=== PATIENT | male | born 1935 | race Caucasian/White ===

== ENCOUNTER 2017-08-29 18:02 | Emergency (ER) | payer MEDICARE, OTHER ==
[~2017-08-29] VITALS: Ht 180.3 cm; Wt 137.5 kg
[~2017-08-29 18:02] MED LIST: ASPI-1071 PO; CITA20TA16 PO; LISI30TA4 PO; LORA1TAB PO
[2017-08-29 20:21] VITALS: BP 170/104
[2017-08-29 20:56] LABS: CLARITY,URINE CLEAR (Clear); COLOR,URINE YELLOW (Yellow); GLUCOSE, URINE NEGATIVE (Neg); KETONES,URINE NEGATIVE (Neg); LEUKOCYTE ESTERASE ,URINE NEGATIVE (Neg); NITRITES, URINE NEGATIVE (Neg); OCCULT BLOOD,URINE NEGATIVE (Neg); PROTEIN,URINE NEGATIVE (Neg); UA COLLECTION TYPE CLN CATCH MIDSTREAM; UROBILINOGEN,URINE 0.2 E.U/dL (0.2-1.0)
[2017-08-29 21:28] LABS: BASOPHILS # (AUTO) 0.1 X10'3 (0-0.2); BASOPHILS % (AUTO) 0.8 % (0-1); EOSINOPHILS # (AUTO) 0.2 X10'3 (0-0.9); EOSINOPHILS % (AUTO) 2.7 % (0-6); HEMATOCRIT 47.9 % (42.0-52.0); LYMPHOCYTES % (AUTO) 27.1 % (21-51); MEAN CORPUSCULAR HEMOGLOBIN 28.2 PG (27.0-31.0); MEAN CORPUSCULAR HGB CONC 33.4 % (33.0-36.5); MEAN CORPUSCULAR VOLUME 84.4 FL (78-98); MEAN PLATELET VOLUME 9.2 FL (7.4-10.4); MONOCYTES # (AUTO) 0.7 X10'3 (0-0.9); MONOCYTES % (AUTO) 9.5 % (2-12); NEUTROPHILS # (AUTO) 4.4 X10'3 (1.8-7.7); NEUTROPHILS % (AUTO) 59.9 % (42-75); PLATELET COUNT 238 X10'3 (140-440); RED BLOOD COUNT 5.68 X10'6 (4.70-6.10); RED CELL DISTRIBUTION WIDTH 13.9 % (11.5-14.5); WHITE BLOOD COUNT 7.4 X10'3 (4.5-11.0)
[2017-08-29 21:45] LABS: ALANINE AMINOTRANSFERASE 19 U/L (12-78); ALBUMIN 4.4 G/DL (3.4-5.0); ALBUMIN/GLOBULIN RATIO 1.3 (1.1-1.5); ALKALINE PHOSPHATASE 109 IU/L (46-116); ANION GAP 11 (8-16); ASPARTATE AMINO TRANSFERASE 20 U/L (10-37); BILIRUBIN,TOTAL 0.8 MG/DL (0.1-1.0); BLOOD UREA NITROGEN 14 MG/DL (7-18); BUN/CREATININE RATIO 12.1 (5.4-32.0); CALCIUM 9.2 MG/DL (8.5-10.1); CHLORIDE 104 MMOL/L (99-107); CREATININE 1.16 MG/DL (0.60-1.10); GLUCOSE 101 MG/DL (70-104); POTASSIUM 4.2 MMOL/L (3.5-5.1); SODIUM 142 MMOL/L (135-145); TOTAL CARBON DIOXIDE 27.4 MMOL/L (24-32); TOTAL PROTEIN 7.8 G/DL (6.4-8.2); eGFR 60 ML/MIN
[2017-08-29 21:54] LABS: MAGNESIUM 2.4 MG/DL (1.5-2.4)
== END 2017-08-29 22:25 | disposition home or self-care (01) ==
LOC: ER 18:02
DX: R10.9 Unspecified abdominal pain (principal); F03.91 Unspecified dementia, unspecified severity, with behavioral disturbance; I10 Essential (primary) hypertension; K21.9 Gastro-esophageal reflux disease without esophagitis; Z95.0 Presence of cardiac pacemaker; Z79.899 Other long term (current) drug therapy
CPT/HCPCS: 36415; 80053; 81003; 83735; 84443; 85025; 99284

== ENCOUNTER 2018-12-30 18:53 | Inpatient (IN) | payer MEDICARE, OTHER ==
[~2018-12-30] VITALS: Ht 180.3 cm; Wt 80.0 kg
[~2018-12-30 18:53] MED LIST changes: -ASPI-1071 PO; -LISI30TA4 PO
[2018-12-30 19:20] LABS: BASOPHILS # (AUTO) 0.1 X10'3 (0-0.2); BASOPHILS % (AUTO) 1.2 % (0-1); EOSINOPHILS # (AUTO) 0.2 X10'3 (0-0.9); HEMOGLOBIN 13.6 g/dl (14.0-17.9); LYMPHOCYTES # (AUTO) 1.9 X10'3 (1.1-4.8); LYMPHOCYTES % (AUTO) 29.5 % (21-51); MEAN CORPUSCULAR HEMOGLOBIN 26.4 PG (27.0-31.0); MEAN CORPUSCULAR HGB CONC 33.1 g/dL (33.0-36.5); MEAN CORPUSCULAR VOLUME 79.9 FL (78-98); MONOCYTES # (AUTO) 0.8 X10'3 (0-0.9); MONOCYTES % (AUTO) 12.4 % (2-12); NEUTROPHILS # (AUTO) 3.4 X10'3 (1.8-7.7); NEUTROPHILS % (AUTO) 53.9 % (42-75); PLATELET COUNT 226 X10'3 (140-440); RED BLOOD COUNT 5.13 X10'6 (4.70-6.10); RED CELL DISTRIBUTION WIDTH 14.6 % (11.5-14.5); WHITE BLOOD COUNT 6.3 X10'3 (4.5-11.0)
[2018-12-30 19:35] LABS: PARTIAL THROMBOPLASTIN TIME 29 SECONDS (22-32)
[2018-12-30 19:36] LABS: ALANINE AMINOTRANSFERASE 21 U/L (12-78); ALBUMIN 3.5 G/DL (3.4-5.0); ALBUMIN/GLOBULIN RATIO 1.3 (1.1-1.5); ALKALINE PHOSPHATASE 92 IU/L (46-116); ANION GAP 8 (8-16); ASPARTATE AMINO TRANSFERASE 15 U/L (10-37); BILIRUBIN,TOTAL 0.6 MG/DL (0.1-1.0); BLOOD UREA NITROGEN 7 MG/DL (7-18); BUN/CREATININE RATIO 5.2 (5.4-32.0); CALCIUM 8.3 MG/DL (8.5-10.1); CHLORIDE 109 MMOL/L (99-107); CREATININE 1.35 MG/DL (0.60-1.10); GLUCOSE 88 MG/DL (70-104); POTASSIUM 3.8 MMOL/L (3.5-5.1); SODIUM 142 MMOL/L (135-145); TOTAL CARBON DIOXIDE 25.5 MMOL/L (24-32); TOTAL PROTEIN 6.3 G/DL (6.4-8.2); eGFR 50 ML/MIN
[2018-12-30] MEDS ORDERED: aspirin 81mg tab.chew PO ONE (20:25)
--- NOTE | 2018-12-30 20:41 | NUR ---
Aspirin non administered, medication given enroute by EMS
[2018-12-30] MEDS ORDERED: ondansetron/PF 4mg/2ml inj IV PRN (21:35)
[2018-12-30] MEDS ORDERED: magnesium hydroxide 30ml (MOM) UD suspension PO PRN (21:35)
[2018-12-30] MEDS ORDERED: mag hydrox/Alum hydrox/simeth 30ml oral suspension PO PRN (21:35)
[2018-12-30] MEDS ORDERED: acetaminophen 325mg tablet PO PRN (21:35)
[2018-12-31] MEDS ORDERED: LORazepam 1 MG tablet PO ONE (00:20)
--- NOTE | 2018-12-31 00:51 | NUR ---
Patient confused, pulled out IV, walking around room attempting to clean up mess. Patient moved to RM 16 for closer observation
--- NOTE | 2018-12-31 01:37 | NUR ---
Patient in room . I have received report from Sophia LEVY and had the opportunity to ask questions and assume patient care.
[2018-12-31 02:15] VITALS: BP 167/88
--- NOTE | 2018-12-31 03:30 | NUR ---
pt woke up and attempted to take out his leads and IV, was able to stop him and redirect, he was frustrated and did not know where he was and why he was here.
--- NOTE | 2018-12-31 04:21 | NUR ---
pt took out his IV and did not know why he here even Rn had been explaining to him his situation. Contacted Dr. Adame and let him know about pt with no IV, is okay
--- NOTE | 2018-12-31 04:37 | NUR ---
pt is confused and cannot provide much information, only partial darting was done
--- NOTE | 2018-12-31 06:21 | NUR ---
Problems reprioritized. Patient report given, questions answered & plan of care reviewed with Franck LEVY.
--- NOTE | 2018-12-31 06:51 | NUR ---
Patient in room PCU 3026. I have received report from YAMILETH LEVY and had the opportunity to ask questions and assume patient care.
[2018-12-31 07:15] VITALS: BP 151/88
[2018-12-31] MEDS: heparin, porcine 5000 units/ml vial SQ SCH ×2 (07:44→20:27)
--- NOTE | 2018-12-31 09:09 | NUR ---
Student Medication Administration: For this medication-pass time frame, all medication were reviewed, dispensed, administered and documented per hospital policy by Mitzy KERN [facility].
--- NOTE | 2018-12-31 09:09 | NUR ---
Student documentation: I have reviewed a interventions, assessments performed and documented by Mitzy KERN [facility].
[2018-12-31 11:13] VITALS: BP 160/85
--- NOTE | 2018-12-31 11:24 | NUR ---
PAGER ID: [phone] MESSAGE: RE: ROOM [id number] Danny Monreal Pt has had elevated BP for the past 3 readings 167/88, 151/88, 160/85. Pt does not have any BP meds ordered. Do you want to order an prn? or a BP med scheduled? states pt use to take BP med. Franck LEVY [id number]
--- NOTE | 2018-12-31 14:03 | NUR ---
PAGER ID: [phone] MESSAGE: RE: ROOM [id number] Danny Monreal Pt up walking in room, taking off tele, taking off tabs alarm, very confused, won't stay in bed, tying to call , Can we have order for a sitter for pt safety? Franck LEVY [id number]
[2018-12-31 15:58] VITALS: BP 166/87
[2018-12-31 18:00] VITALS: BP 184/84
--- NOTE | 2018-12-31 18:08 | NUR ---
Patient in room PCU 3023. I have received report from Franck LEVY and had the opportunity to ask questions and assume patient care.
[2018-12-31] MEDS ORDERED: LORazepam 1 MG tablet PO SCH (21:00)
[2018-12-31 22:00] VITALS: BP 154/83
[2018-12-31] MEDS: LORazepam 2 mg/ml vial IV ONE ×2 (22:39→22:46)
--- NOTE | 2018-12-31 22:40 | NUR ---
Called Dr. Adame, pt is combative, had to be placed in 2 point restraints starting at 22:20. Also obtained IV Ativan 2 mg Once, okay to be off tele box for several hours.
[2018-12-31] MEDS ORDERED: OLANZapine 5mg rapidly disint. tablet PO ONE (23:50)
[2019-01-01] VITALS (8 sets, daily range): BP systolic 106–165; BP diastolic 60–97
[2019-01-01] MEDS ORDERED: OLANZapine 2.5MG tablet PO ONE (05:45)
--- NOTE | 2019-01-01 05:55 | NUR ---
I have reviewed Josie Altman's RN charting and I agree.
--- NOTE | 2019-01-01 06:00 | NUR ---
Problems reprioritized. Patient report given, questions answered & plan of care reviewed with MILDRED Juárez.
[2019-01-01 06:13] LABS: BASOPHILS # (AUTO) 0.1 X10'3 (0-0.2); BASOPHILS % (AUTO) 0.9 % (0-1); EOSINOPHILS # (AUTO) 0.2 X10'3 (0-0.9); HEMATOCRIT 41.7 % (42.0-52.0); HEMOGLOBIN 14.2 g/dl (14.0-17.9); LYMPHOCYTES # (AUTO) 2.5 X10'3 (1.1-4.8); LYMPHOCYTES % (AUTO) 28.6 % (21-51); MEAN CORPUSCULAR HGB CONC 33.9 g/dL (33.0-36.5); MEAN CORPUSCULAR VOLUME 79.6 FL (78-98); MEAN PLATELET VOLUME 8.5 FL (7.4-10.4); MONOCYTES # (AUTO) 0.8 X10'3 (0-0.9); MONOCYTES % (AUTO) 9.6 % (2-12); NEUTROPHILS # (AUTO) 5.1 X10'3 (1.8-7.7); NEUTROPHILS % (AUTO) 58.9 % (42-75); PLATELET COUNT 183 X10'3 (140-440); RED BLOOD COUNT 5.24 X10'6 (4.70-6.10); WHITE BLOOD COUNT 8.6 X10'3 (4.5-11.0)
--- NOTE | 2019-01-01 06:30 | NUR ---
Problems reprioritized. Patient report given, questions answered & plan of care reviewed with Franck Naik RN.
--- NOTE | 2019-01-01 06:31 | NUR ---
Patient in room PCU 3023. I have received report from Av RN and had the opportunity to ask questions and assume patient care.
[2019-01-01 06:32] LABS: ALBUMIN 3.6 G/DL (3.4-5.0); ANION GAP 11 (8-16); BLOOD UREA NITROGEN 14 MG/DL (7-18); CALCIUM 9.7 MG/DL (8.5-10.1); CHLORIDE 110 MMOL/L (99-107); CREATININE 1.17 MG/DL (0.60-1.10); GLUCOSE 83 MG/DL (70-104); SODIUM 143 MMOL/L (135-145); TOTAL CARBON DIOXIDE 22.5 MMOL/L (24-32); eGFR 60 ML/MIN
[2019-01-01] MEDS: heparin, porcine 5000 units/ml vial SQ SCH (08:00)
[2019-01-01] MEDS ORDERED: regadenoson 0.4mg/5ml syringe IV PRN (09:00)
[2019-01-01] MEDS ORDERED: aminophylline 250mg/10ml inj. IV PRN (09:00)
[2019-01-01] MEDS ORDERED: metoprolol tartrate 1mg/ml inj IV PRN (09:00)
[2019-01-01] MEDS ORDERED: nitroGLYCERIN 0.4mg SUBLingual tab SL PRN (09:00)
--- NOTE | 2019-01-01 16:18 | NUR ---
Pt's called and informed pt is going to be discharged. 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 Lindsay LEVY informed.
--- NOTE | 2019-01-01 16:19 | NUR ---
Problems reprioritized. Patient report given, questions answered & plan of care reviewed with Lindsay LEVY.
== END 2019-01-01 17:29 | disposition home or self-care (01) | DRG 313 ==
LOC: ER 18:54 → PCU 3S 12-31 02:16 → OBSVTOIN 01-01 08:25
PROVIDERS: ADMIT Internal Medicine; ATTEND Internal Medicine
PROC: 4A02XM4 Measurement of Cardiac Total Activity, External Approach (ICD-10-PCS; principal; 2019-01-01)
PROC: 3E033HZ Introduction of Radioactive Substance into Peripheral Vein, Percutaneous Approach (ICD-10-PCS; 2019-01-01)
DX: R07.89 Other chest pain (principal); F05 Delirium due to known physiological condition; F03.91 Unspecified dementia, unspecified severity, with behavioral disturbance; I10 Essential (primary) hypertension; K21.9 Gastro-esophageal reflux disease without esophagitis; Z87.11 Personal history of peptic ulcer disease; Z95.0 Presence of cardiac pacemaker
CPT/HCPCS: 36415; 71045; 78452; 80048; 80053; 84484; 85025; 85610; 85730; 87081; 93005; 93017; 96374; 99285; A9500; G0378; J0280; J1644; J2060; J2785

== ENCOUNTER 2020-05-15 04:17 | Emergency (ER) | payer MEDICARE, OTHER ==
[~2020-05-15] VITALS: Ht 188 cm; Wt 75.9 kg
[~2020-05-15 04:17] MED LIST changes: -CITA20TA16 PO
--- NOTE | 2020-05-15 04:23 | NUR ---
Ruben at posion control contacted regarding ingestion error of #7 - 1mg ativan tablets approx 0345hrs. They request we observe pt for 4-6 hours or until back at baseline. Monitor for respiratory depression but do not give romazicon since pt routinely takes ativan. Charcoal is also not necessary at this time. pt may be groggy and ataxic. routine labs to ensure pt didn't ingest any other medications, tylenol, asa, etc.
--- NOTE | 2020-05-15 04:28 | NUR ---
XRAY AT BEDSIDE
--- NOTE | 2020-05-15 04:42 | NUR ---
MOSHE CAN BE REACHED AT [phone]
[2020-05-15 05:36] LABS: BASOPHILS # (AUTO) 0.1 X10'3 (0-0.2); EOSINOPHILS # (AUTO) 0.3 X10'3 (0-0.9); EOSINOPHILS % (AUTO) 4.7 % (0-6); HEMATOCRIT 39.1 % (42.0-52.0); HEMOGLOBIN 13.2 g/dl (14.0-17.9); LYMPHOCYTES # (AUTO) 1.9 X10'3 (1.1-4.8); LYMPHOCYTES % (AUTO) 32.6 % (21-51); MEAN CORPUSCULAR HEMOGLOBIN 28.3 PG (27.0-31.0); MEAN CORPUSCULAR HGB CONC 33.8 g/dL (33.0-36.5); MEAN CORPUSCULAR VOLUME 83.6 FL (78-98); MEAN PLATELET VOLUME 8.9 FL (7.4-10.4); MONOCYTES # (AUTO) 0.7 X10'3 (0-0.9); MONOCYTES % (AUTO) 12.1 % (2-12); NEUTROPHILS # (AUTO) 2.8 X10'3 (1.8-7.7); NEUTROPHILS % (AUTO) 49.6 % (42-75); PLATELET COUNT 182 X10'3 (140-440); RED BLOOD COUNT 4.68 X10'6 (4.70-6.10); RED CELL DISTRIBUTION WIDTH 13.8 % (11.5-14.5); WHITE BLOOD COUNT 5.7 X10'3 (4.5-11.0)
[2020-05-15 05:39] LABS: ALANINE AMINOTRANSFERASE 18 U/L (12-78); ALBUMIN 3.4 G/DL (3.4-5.0); ALBUMIN/GLOBULIN RATIO 1.2 (1.1-1.5); ALKALINE PHOSPHATASE 98 IU/L (46-116); ANION GAP 7 (8-16); ASPARTATE AMINO TRANSFERASE 16 U/L (10-37); BILIRUBIN,TOTAL 0.5 MG/DL (0.1-1.0); BLOOD UREA NITROGEN 18 MG/DL (7-18); BUN/CREATININE RATIO 16.2 (5.4-32.0); CALCIUM 8.4 MG/DL (8.5-10.1); CHLORIDE 107 MMOL/L (99-107); CREATININE 1.11 MG/DL (0.60-1.10); ETHANOL < 0.010 GM/DL (0.0-0.010); GLUCOSE 87 MG/DL (70-104); POTASSIUM 4.1 MMOL/L (3.5-5.1); SODIUM 142 MMOL/L (135-145); TOTAL PROTEIN 6.3 G/DL (6.4-8.2); eGFR 63 ML/MIN
--- NOTE | 2020-05-15 05:52 | NUR ---
BED ALARM PLACED ON PT HE IS UNSTEADY ON HIS FEET AND TRYING TO GET OUT OF BED.
--- NOTE | 2020-05-15 06:28 | NUR ---
pt has to be on 4-6 hr observation before d/c ,called pt as per she will come pick him up at 9.no distress noted pt sitting in bed with yaritza alarm on.
--- NOTE | 2020-05-15 06:46 | NUR ---
pt is sleeping in bed at this time ,will cont to monitor.
--- NOTE | 2020-05-15 06:56 | NUR ---
pt tried to get out of bed asked why is he getting up as per pt he is cold.warm blanket provided to the pt ,pt bedding was wet ,changed the bedding with help of dolores garcia.pt placed in diaper.pt vitals checked and documented.
[2020-05-15 07:24] LABS: CLARITY,URINE CLEAR (Clear); COLOR,URINE STRAW (Yellow); GLUCOSE, URINE NEGATIVE (Neg); KETONES,URINE NEGATIVE (Neg); LEUKOCYTE ESTERASE ,URINE NEGATIVE (Neg); NITRITES, URINE NEGATIVE (Neg); OCCULT BLOOD,URINE NEGATIVE (Neg); PROTEIN,URINE NEGATIVE (Neg); UROBILINOGEN,URINE 0.2 E.U/dL (0.2-1.0)
[2020-05-15 07:29] LABS: UA COLLECTION TYPE VOIDED
[2020-05-15 07:36] LABS: URINE AMPHETAMINE SCREEN NEGATIVE (Neg); URINE BARBITUATE SCREEN NEGATIVE (Neg); URINE BENZODIAZEPINES SCREEN NEGATIVE (Neg); URINE CANNABINOID SCREEN NEGATIVE (Neg); URINE COCAINE SCREEN NEGATIVE (Neg); URINE METHADONE SCREEN NEGATIVE (Neg); URINE OPIATE SCREEN NEGATIVE (Neg); URINE PHENCYCLIDINE SCREEN NEGATIVE (Neg)
[2020-05-15 09:30] VITALS: BP 157/98
== END 2020-05-15 09:34 | disposition home or self-care (01) ==
LOC: ER 04:18
DX: T42.4X1A Poisoning by benzodiazepines, accidental (unintentional), initial encounter (principal); I10 Essential (primary) hypertension; K21.9 Gastro-esophageal reflux disease without esophagitis; Z87.11 Personal history of peptic ulcer disease; Z95.0 Presence of cardiac pacemaker; Z98.890 Other specified postprocedural states; Z79.899 Other long term (current) drug therapy; Y92.89 Other specified places as the place of occurrence of the external cause
CPT/HCPCS: 36415; 71045; 80053; 80305; 80320; 81003; 85025; 99284